=== PATIENT | female | born 1975 | race Caucasian/White ===

== ENCOUNTER 2016-10-16 23:50 | Emergency (ER) | payer MEDICAID ==
[~2016-10-16] VITALS: Ht 177.8 cm; Wt 127.0 kg
[~2016-10-16 23:50] MED LIST: BIOTIN; CEPH-569; [UNRECOGNIZED DRUG - CODE]
[2016-10-17] MEDS ORDERED: IPRATROPIUM BROMIDE (0.02%) 0.5MG/2.5ML NEB HHN STA (00:22)
[2016-10-17] MEDS ORDERED: PREDNISONE 20MG TABLET PO STA (00:22)
[2016-10-17] MEDS ORDERED: ALBUTEROL (0.083%) 2.5MG/3ML NEB HHN STA ×2 (00:22→01:29)
[2016-10-17] MEDS ORDERED: ALBUTEROL (0.5%) 2.5MG/0.5ML NEB HHN ONE (00:38)
[2016-10-17 02:52] VITALS: BP 135/74
== END 2016-10-17 02:55 | disposition home or self-care (01) ==
LOC: ER 23:51
DX: J45.901 Unspecified asthma with (acute) exacerbation (principal)
CPT/HCPCS: 71010; 94640; 99284; J7512; J7611; Z7610